=== PATIENT | female | born 1990 | race Caucasian/White ===

== ENCOUNTER → 2022-12-01 08:24 | Outpatient (BNVA) | payer BC, MEDICAID, SELFPAY | PROVIDERS: Visit Provider Nurse Practitioner Women's Health | DX: Z32.00 Encounter for pregnancy test, result unknown (principal); E28.2 Polycystic ovarian syndrome; N92.6 Irregular menstruation, unspecified | CPT/HCPCS: 81000; 81025; 84443; 84702 ==

== ENCOUNTER → 2022-12-06 14:18 | Outpatient (BNVA) | payer BC, MEDICAID, SELFPAY | PROVIDERS: Visit Provider Nurse Practitioner Women's Health | DX: Z34.90 Encounter for supervision of normal pregnancy, unspecified, unspecified trimester (principal); Z3A.10 10 weeks gestation of pregnancy | CPT/HCPCS: 76801 ==

== ENCOUNTER → 2024-01-02 16:26 | Outpatient (BNVA) | payer BC, MEDICAID, SELFPAY | PROVIDERS: PCP Nurse Practitioner Family; Visit Provider Nurse Practitioner Family | DX: R68.89 Other general symptoms and signs (principal) | CPT/HCPCS: 87400 ==

== ENCOUNTER → 2024-04-17 09:24 | Outpatient (BNVA) | payer SELFPAY | PROVIDERS: PCP Nurse Practitioner Family; Visit Provider Nurse Practitioner Family | DX: E05.90 Thyrotoxicosis, unspecified without thyrotoxic crisis or storm (principal) | CPT/HCPCS: 84439; 84480; 84481 ==

== ENCOUNTER → 2024-05-01 17:05 | Outpatient (BNVA) | payer SELFPAY | PROVIDERS: PCP Nurse Practitioner Family; Visit Provider Nurse Practitioner Family | DX: E05.90 Thyrotoxicosis, unspecified without thyrotoxic crisis or storm (principal) | CPT/HCPCS: 84443 ==

== ENCOUNTER → 2024-06-03 09:22 | Outpatient (BNVA) | payer SELFPAY | PROVIDERS: PCP Nurse Practitioner Family; Visit Provider Nurse Practitioner Family | DX: E07.9 Disorder of thyroid, unspecified | CPT/HCPCS: 84439; 84443; 86376 ==

== ENCOUNTER → 2024-09-16 14:39 | Outpatient (BNVA) | payer BC, SELFPAY | PROVIDERS: PCP Nurse Practitioner Family; Visit Provider Internal Medicine | DX: E03.9 Hypothyroidism, unspecified (principal); E28.2 Polycystic ovarian syndrome; E07.9 Disorder of thyroid, unspecified; E05.90 Thyrotoxicosis, unspecified without thyrotoxic crisis or storm | CPT/HCPCS: 83516; 84439; 84443; 86376; 86800 ==

== ENCOUNTER → 2024-12-25 16:42 | Outpatient (BNVA) | payer BC, SELFPAY | PROVIDERS: PCP Nurse Practitioner Family; Visit Provider Nurse Practitioner Family | DX: F41.9 Anxiety disorder, unspecified (principal); F32.A Depression, unspecified; E05.90 Thyrotoxicosis, unspecified without thyrotoxic crisis or storm; E55.9 Vitamin D deficiency, unspecified; Z79.899 Other long term (current) drug therapy; Z13.6 Encounter for screening for cardiovascular disorders; E03.9 Hypothyroidism, unspecified; E28.2 Polycystic ovarian syndrome | CPT/HCPCS: 80053; 80061; 81003; 82306; 82728; 83036; 83550; 84439; 84443; 84481; 85025 ==

== ENCOUNTER 2025-01-21 12:14 | Outpatient (CLI) | payer BC, MEDICAID, SELFPAY ==
--- NOTE | 2025-01-21 12:30 | MM_ITS ---
WS: [id number] Bilateral diagnostic 3D tomosynthesis digital mammogram, 01/21/2025 Clinical Data: N60.01 - Solitary cyst of right breast Comparison: None. Findings: There are 3 areas marked on the left breast of possible palpable nodules. The right breast is normal. There is fibroglandular tissue in both breasts. No nodules or masses are seen. There are no spiculated lesions. No abnormal calcifications are noted. MM/MM diag BI tomosynthesis [id number] Impression: 1. Negative bilateral mammogram with no prior exam for review. 2. Left breast ultrasound. BIRADS: 1 - Negative. FOLLOW UP: See Report The CAD glass checker was used
--- NOTE | 2025-01-21 13:00 | US_ITS ---
WS: [id number] Left breast ultrasound, 01/21/2025 Clinical Data: N60.01 - Solitary cyst of right breast Comparison: Mammogram, 01/21/2025 Findings: There were 3 regions imaged on the ultrasound. The regions correspond to the small palpable lesions. At the 10 o'clock position 4 cm from the nipple there were no abnormalities. Only normal breast tissue is seen. At the 11 o'clock position 8 cm from the nipple there was a simple cyst measuring 0.2 x 0.3 x 0.3 cm. No masses were seen. In the left axilla there were no abnormalities. Only normal breast tissue was seen. US/US breast BI limited* [id number] Impression: 1. Simple cyst at 11 o'clock position 8 cm from the nipple in the left breast. 2. Other areas of small nodules show no abnormalities. 3. Recommend clinical follow-up BIRADS: 1 - Negative. FOLLOW UP: See Report
== END 2025-01-21 12:15 | disposition home or self-care (01) ==
LOC: RAD 12:17
PROVIDERS: PCP Nurse Practitioner Family; Visit Provider Nurse Practitioner Family
DX: N60.02 Solitary cyst of left breast (principal)
CPT/HCPCS: 76642; 77062; G0279

== ENCOUNTER → 2025-03-31 09:35 | Outpatient (BNVA) | payer BC, MEDICAID, SELFPAY | PROVIDERS: PCP Nurse Practitioner Family; Visit Provider Nurse Practitioner Family | DX: E05.90 Thyrotoxicosis, unspecified without thyrotoxic crisis or storm (principal); E66.812 Obesity, class 2; E66.09 Other obesity due to excess calories; Z68.36 Body mass index [BMI] 36.0-36.9, adult; E55.9 Vitamin D deficiency, unspecified; D50.9 Iron deficiency anemia, unspecified; R53.82 Chronic fatigue, unspecified; R59.0 Localized enlarged lymph nodes; B09 Unspecified viral infection characterized by skin and mucous membrane lesions | CPT/HCPCS: 80053; 81003; 82306; 83550; 84439; 84443; 85025; 86787 ==

== ENCOUNTER → 2025-06-30 16:25 | Outpatient (BNVA) | payer BC, MEDICAID, SELFPAY | PROVIDERS: PCP Nurse Practitioner Family; Visit Provider Nurse Practitioner Family | DX: Z13.6 Encounter for screening for cardiovascular disorders (principal); E05.90 Thyrotoxicosis, unspecified without thyrotoxic crisis or storm; E03.9 Hypothyroidism, unspecified; E66.812 Obesity, class 2; E66.09 Other obesity due to excess calories; Z68.36 Body mass index [BMI] 36.0-36.9, adult; E55.9 Vitamin D deficiency, unspecified; Z79.899 Other long term (current) drug therapy; D50.9 Iron deficiency anemia, unspecified | CPT/HCPCS: 80053; 80061; 81003; 82306; 82607; 82728; 82746; 83036; 83550; 83735; 84443; 85025 ==